=== PATIENT | male | born 1995 | race Caucasian/White ===

== ENCOUNTER 2018-06-07 10:50 | Emergency (ER) | payer OTHER ==
[~2018-06-07] VITALS: Ht 170.2 cm; Wt 62.6 kg
[2018-06-07 10:53] VITALS: BP 114/74
--- NOTE | 2018-06-07 10:58 | NUR ---
PT AMBULATES TO BED 2
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
--- NOTE | 2018-06-07 11:43 | NUR ---
Patient being evaluated by physician at bedside.
--- NOTE | 2018-06-07 11:46 | NUR ---
DR. MUIR AT BEDSIDE TO EVALUATE PT.
[2018-06-07 12:01] VITALS: BP 114/74
--- NOTE | 2018-06-07 12:02 | NUR ---
Patient discharged with v/s stable. Written and verbal after care instructions given and explained. Patient verbalized understanding. Ambulatory with steady gait. All questions addressed prior to discharge. Advised to follow up with PMD.
== END 2018-06-07 12:00 | disposition home or self-care (01) ==
LOC: MED 10:50
DX: R51 Headache (principal); F41.9 Anxiety disorder, unspecified; Z87.828 Personal history of other (healed) physical injury and trauma
CPT/HCPCS: 99281

== ENCOUNTER 2019-04-18 11:25 | Emergency (ER) | payer MEDICAID, OTHER ==
[~2019-04-18] VITALS: Ht 170.2 cm; Wt 63.5 kg
[2019-04-18 11:38] VITALS: BP 122/84
--- NOTE | 2019-04-18 12:49 | NUR ---
PATIENT AMBULATED TO BED 12.
--- NOTE | 2019-04-18 13:01 | NUR ---
BIB SELF C/O FEVER/ BODY ACHES/ MUSCLE PAIN/ DRY COUGH X4 DAYS PATIENT HAD AN ONSET OF FLU-LIKE SYMPTOMS, (N/V/D) AND HAS BEEN SELF MEDICATION WITH TYLENOL AND NYQUIL, BUT HAS NO RELIEF. ABD SOUNDS NORMO ACTIVE IN ALL QUADRANTS. NO SOB REPORTED. PATIENTS SKIN IN COOL, DRY AND INTACT. CAP REFILL <3. AAOX4. NO PMH NKA
[2019-04-18 13:44] VITALS: BP 115/79
--- NOTE | 2019-04-18 13:45 | NUR ---
Patient discharged with v/s stable. Written and verbal after care instructions given and explained. Patient alert, oriented and verbalized understanding of instructions. Ambulatory with steady gait. All questions addressed prior to discharge. ID band removed. Patient advised to follow up with PMD. Rx of TESSALON PERLES, IBUPROFEN, PROMETHAZINE given. Patient educated on indication of medication including possible reaction and side effects. Opportunity to ask questions provided and answered.
== END 2019-04-18 13:45 | disposition home or self-care (01) ==
LOC: MED 11:25
DX: B34.9 Viral infection, unspecified (principal)
CPT/HCPCS: 99283